=== PATIENT | female | born 1970 | race Caucasian/White ===

== ENCOUNTER 2023-10-10 21:55 | Emergency (ER) | payer OTHER ==
--- NOTE | 2023-10-10 23:10 | ED Physician Documentation ---
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 Not on blood thinners. [id number]. Last tetanus in 2021. 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 - Allergies Allergies/Adverse Reactions: Allergies Allergy/AdvReac Type Severity Reaction Status Date / Time prochlorperazine Allergy Anaphylaxis Verified 10/10/23 22:06 [From Compazine] - Social History Does the pt smoke?: No Smoking Status: Never smoker Does the pt drink ETOH?: Yes Does the pt have substance abuse?: No - Immunizations Immunizations are current?: Yes Immunizations: TDAP current <10years - POLST Patient has POLST: No PD ED PE NORMAL - General General: Alert and oriented X 3, No acute distress, Well developed/nourished - HEENT HEENT: Atraumatic - Cardiac Cardiac: Strong equal pulses - Respiratory Respiratory: No respiratory distress - Extremities Extremities: Other (1 cm laceration to R index finger near PIP; full ROM at all joints; brisk cap refill) Results - Vitals Vitals: Vital Signs - 24 hr 10/10/23 10/10/23 22:01 23:17 Temperature 36.7 C 36.7 C Heart Rate 61 60 Respiratory 18 18 Rate Blood Pressure 172/81 H 130/80 O2 Saturation 96 100 Oxygen O2 Source Room air Procedures - Laceration (location) R index Length in cm: 1 Wound type: Linear Neurovascular status: Sensory intact, Motor intact, Vascular intact Tendon involvement: Tendon intact Anesthesia: Lidocaine 1% Wound preparation: Hibiclens, Irrigated copiously NS Skin layer closure: Size #-0 - enter number (4-0), Sutures - enter # (2) Other: Patient tolerated well, No complications, Neurovascular intact, Dressing applied, Tetanus UTD PD Medical Decision Making - ED course ED course: Patient with laceration to right index finger. Neurovascularly intact with no signs of tendon injury. Wound was copiously irrigated and cleaned and sutured closed. Finger splint was applied To help prevent excessive range of motion For the first day. Patient counseled on wound care, need to return for suture removal as well as concerning symptoms to return for. Departure - Departure Disposition: 01 Home, Self Care Clinical Impression: Laceration of right index finger Condition: Stable Instructions: ED Laceration Ext Sutr Stap Tape Comments: You have 2 stitches placed to your right index finger. These should stay in place for approximately 10 -14 days. You can return to the ER Or the walk-in clinic to have them removed. Please keep the wound clean and dry. Return with any concerns for infection, worsening pain. Forms: PCP List Discharge Date/Time: 10/10/23 23:15
[2023-10-10 23:22] VITALS: BP 130/80; O2SAT 100
== END 2023-10-10 23:15 | disposition home or self-care (01) ==
LOC: ED 21:55
DX: S61.210A Laceration without foreign body of right index finger without damage to nail, initial encounter (principal); W26.0XXA Contact with knife, initial encounter; Y93.89 Activity, other specified
CPT/HCPCS: 12001; 99282